=== PATIENT | male | born 1995 | race Caucasian/White ===

== ENCOUNTER 2017-11-12 08:13 | Emergency (ER) | payer OTHER ==
--- NOTE | 2017-11-12 08:20 | ER Document Report ---
ED Seizure - General Stated Complaint: POSSIBLE SEIZURE Time Seen by Provider: 11/12/17 08:20 Mode of Arrival: Ambulatory Information source: Patient Notes: 22-year-old [employer] male walked into the emergency department off the ambulance. When he sat up this morning at 7 he felt a tickling sensation in his left neck to his nipple line. He got up and was at the sink in the bathroom brushing his teeth when he felt nauseous and a little lightheaded. The next thing he remembers is waking up on the floor. His witnessed the event and stated that she heard him say "OSHA associate" and she saw him fall backwards and landed on his right side. He had all over body shaking for about 2 minutes. She called EMS in by the time EMS answered he was responding to her. In at that point he asked "what happened". - Related Data Allergies/Adverse Reactions: No Known Allergies Allergy (Unverified 11/12/17 08:43) Past Medical History - General Information source: Patient - Social History Smoking Status: Never Smoker Frequency of alcohol use: None Drug Abuse: None Lives with: Spouse/Significant other Family History: Reviewed & Not Pertinent - Medical History Medical History: Negative Surgical Hx: Negative Review of Systems - Review of Systems Constitutional: No symptoms reported EENT: No symptoms reported Cardiovascular: No symptoms reported Respiratory: No symptoms reported Gastrointestinal: No symptoms reported Genitourinary: No symptoms reported Male Genitourinary: No symptoms reported Musculoskeletal: No symptoms reported Skin: No symptoms reported Hematologic/Lymphatic: No symptoms reported Neurological/Psychological: See HPI Physical Exam - Vital signs Vitals: Temp Resp Pulse Ox 97.8 F 13 97 11/12/17 08:19 11/12/17 08:19 11/12/17 08:19 Interpretation: Normal - General General appearance: Appears well, Alert - HEENT Head: Normocephalic, Atraumatic Eyes: Normal Conjunctiva: Normal Pupils: PERRL Pharynx: Normal Neck: Supple. No: Lymphadenopathy - Respiratory Respiratory status: No respiratory distress Chest status: Nontender Breath sounds: Normal Chest palpation: Normal - Cardiovascular Rhythm: Regular Heart sounds: Normal auscultation Murmur: No - Abdominal Inspection: Normal Distension: No distension Bowel sounds: Normal Tenderness: Nontender Organomegaly: No organomegaly - Back Back: Normal, Nontender - Extremities General upper extremity: Normal inspection, Nontender, Normal color, Normal ROM , Normal temperature General lower extremity: Normal inspection, Nontender, Normal color, Normal ROM , Normal temperature, Normal weight bearing. No: Brooklyn's sign Shoulder: Tender - dressing from surgery yesterday, in sling - Neurological Neuro grossly intact: Yes Cognition: Normal Orientation: AAOx4 Ama Coma Scale Eye Opening: Spontaneous Ama Coma Scale Verbal: Oriented Gus Coma Scale Motor: Obeys Commands Gus Coma Scale Total: 15 Speech: Normal Motor strength normal: LUE, RUE, LLE, RLE Sensory: Normal - Psychological Associated symptoms: Normal affect, Normal mood - Skin Skin Temperature: Warm Skin Moisture: Dry Skin Color: Normal Course - Re-evaluation Re-evalutation: 11/12/17 10:33 No change in the lightheadedness with the IV fluid. His command getting started and is here with the patient. His is at the bedside. 11/12/17 10:[address] Bender who recommended that I call [facility] to see if they want him for property assessment monitor tonight since he is [facility]. 11/12/17 11:08 Dr. Hinkle added a troponin and chest x-ray that are being done at this time. Dr. Vazquez from [facility] called in his calling his attending for possible transfer. 11/12/17 11:42 troponin negative, cxr negative, heart size normal. 11/12/17 11:58 dr vazquez called back, and I am to call the transfer center [phone], 11/12/17 12:[address] rudd, ER physician will accept transfer to [facility] ER for syncopal episode, monitoring. 11/12/17 13:43 Vital signs are stable, patient has been up to the bathroom to void, feels well Transport is here to take him to [facility], patient is stable for transfer. No dysrhymia noted while in ER at [facility] - Vital Signs Vital signs: Temp Pulse Resp BP Pulse Ox 97.8 F 20 116/68 97 11/12/17 08:19 11/12/17 13:30 11/12/17 13:30 11/12/17 13:30 - Laboratory Result Diagrams: 11/12/17 08:52 11/12/17 09:57 Laboratory results interpreted by me: 11/12/17 08:52 WBC 11.9 H Discharge - Discharge Clinical Impression: Syncopal episodes Qualifiers: Syncope type: unspecified Qualified Code(s): R55 - Syncope and collapse Condition: Stable Disposition: [facility] Admitting Provider: dr. Michelle PLAZA
[2017-11-12] MEDS ORDERED: RINGERS SOLUTION,LACTATED 1,000 ML IV ONE (08:33)
[2017-11-12 09:13] LABS: ABSOLUTE EOSINOPHILS # (AUTO) 0.1 10^3/uL (0.0-0.6); ABSOLUTE LYMPHOCYTES (AUTO) 2.7 10^3/uL (0.5-4.7); ABSOLUTE MONOCYTES (AUTO) 1.2 10^3/uL (0.1-1.4); ABSOLUTE NEUT (AUTO) 7.8 10^3/uL (1.7-8.2); BASOPHILS % (AUTO) 0.3 % (0-2); EOSINOPHILS % (AUTO) 1.1 % (0-6); HEMATOCRIT 41.8 % (37.9-51.0); HEMOGLOBIN 14.1 g/dL (13.5-17.0); LYMPHOCYTES % (AUTO) 22.7 % (13-45); MEAN CORPUSCULAR HEMOGLOBIN 30.4 pg (27.0-33.4); MEAN CORPUSCULAR HGB CONC 33.8 g/dL (32.0-36.0); MEAN CORPUSCULAR VOLUME 90 fl (80-97); MONOCYTES % (AUTO) 10.3 % (3-13); PLATELET COUNT 231 10^3/uL (150-450); RED BLOOD COUNT 4.65 10^6/uL (4.35-5.55); RED CELL DISTRIBUTION WIDTH 13.4 % (11.5-14.0); SEGMENTED NEUTROPHILS % (AUTO) 65.6 % (42-78); TOTAL CELLS COUNTED % (AUTO) 100 %; WHITE BLOOD COUNT 11.9 10^3/uL (4.0-10.5)
--- NOTE | 2017-11-12 10:11 | EKG REPORT ---
SEVERITY:- OTHERWISE NORMAL ECG - SINUS ARRHYTHMIA, RATE 47-73 : Confirmed by: Isaac Gaston 12-Nov-2017 10:10:56
[2017-11-12 10:29] LABS: ALANINE AMINOTRANSFERASE 30 U/L (21-72); ALBUMIN 3.8 g/dL (3.5-5.0); ALKALINE PHOSPHATASE 61 U/L (38-126); ANION GAP 9 (5-19); ASPARTATE AMINO TRANSFERASE 36 U/L (17-59); BILIRUBIN,DIRECT 0.4 mg/dL (0.0-0.4); BILIRUBIN,TOTAL 0.9 mg/dL (0.2-1.3); BLOOD UREA NITROGEN 11 mg/dL (7-20); CALCIUM 8.8 mg/dL (8.4-10.2); CARBON DIOXIDE 26 mmol/L (22-30); CHLORIDE 105 mmol/L (98-107); GLUCOSE 93 mg/dL (75-110); SODIUM 139.8 mmol/L (137-145); TOTAL PROTEIN 6.5 g/dL (6.3-8.2)
[2017-11-12] MEDS ORDERED: OXYCODONE-ACETAMINOPHEN 5-325 MG TABLET PO ONE (10:51)
--- NOTE | 2017-11-12 11:23 | RADIOLOGY REPORT (SQ) ---
EXAM DESCRIPTION: CHEST SINGLE VIEW COMPLETED DATE/TIME: 11/12/2017 11:09 am REASON FOR STUDY: syncope COMPARISON: None. EXAM PARAMETERS: NUMBER OF VIEWS: One view. TECHNIQUE: Single frontal radiographic view of the chest acquired. RADIATION DOSE: NA LIMITATIONS: None. FINDINGS: LUNGS AND PLEURA: No opacities, masses or pneumothorax. No pleural effusion. MEDIASTINUM AND HILAR STRUCTURES: No masses. Contour normal. HEART AND VASCULAR STRUCTURES: Heart normal in size. Normal vasculature. BONES: No acute findings. HARDWARE: None in the chest. OTHER: No other significant finding. IMPRESSION: NO ACUTE RADIOGRAPHIC FINDING IN THE CHEST. TECHNICAL DOCUMENTATION: JOB ID: [id number] [employer]- All Rights Reserved Reading location - IP/workstation name: [email or web address]
[2017-11-12 13:42] VITALS: BP 116/68
== END 2017-11-12 13:50 ==
LOC: ER 08:13 → UNDOADMOB 11:22 → EH 11:22
DX: R55 Syncope and collapse (principal); Z98.890 Other specified postprocedural states
CPT/HCPCS: 93005; 99285; 36415; 85025; 80053; 84484; 71045; 93010; J7120